=== PATIENT | female | born 1965 | race Caucasian/White ===

== ENCOUNTER → 2024-03-26 | Day surgery (SDC) | payer MEDICAID ==
[~2024-03-26] MED LIST: LIDOCAINE HCL/PF 1% 10 MG/ML 5ML VIAL ONE; SODIUM BICARBONATE 4% 2.4MEQ/5ML VIAL IV ONE
== END | disposition home or self-care (01) ==
LOC: RAD 08:40
PROVIDERS: ATTEND Surgery Surgical Oncology
DX: N64.89 Other specified disorders of breast (principal); R92.8 Other abnormal and inconclusive findings on diagnostic imaging of breast; Z79.899 Other long term (current) drug therapy; Z98.890 Other specified postprocedural states
CPT/HCPCS: 19281; J2003; J3490; A4648

== ENCOUNTER → 2024-03-27 | Day surgery (SDC) | payer MEDICAID, OTHER ==
[~2024-03-27] VITALS: Ht 165.1 cm; Wt 72.6 kg
[~2024-03-27] MED LIST changes: +BUPIVACAINE HCL/PF 0.5% (5MG/ML) 10ML ONE; +CEFAZOLIN SODIUM 1000MG/VIAL ONE; +FENTANYL CITRATE/PF 50MCG/ML 2ML VIAL ONE; +HYDROMORPHONE HCL/PF 1MG/ML INJ IV PRN; +LABETALOL 5MG/ML 4ML INJ IV PRN; +LIDOCAINE HCL/EPINEPHRINE 1%-EPI 1:100,000 20ML VIAL ONE; -LIDOCAINE HCL/PF 1% 10 MG/ML 5ML VIAL ONE; +MIDAZOLAM HCL 2 MG/2 ML VIAL ONE; +ONDANSETRON HCL 4MG/2ML INJ IV PRN; +ONDANSETRON HCL 4MG/2ML INJ ONE; +PROPOFOL 200MG/20ML VIAL IV ONE; -SODIUM BICARBONATE 4% 2.4MEQ/5ML VIAL IV ONE
[2024-03-27] MEDS: LACTATED RINGERS 1,000 ML IV SCH (09:08)
== END | disposition home or self-care (01) ==
LOC: OR 08:05
PROVIDERS: ATTEND Surgery Surgical Oncology
DX: N64.89 Other specified disorders of breast (principal); N64.4 Mastodynia; N60.42 Mammary duct ectasia of left breast; R92.8 Other abnormal and inconclusive findings on diagnostic imaging of breast; I10 Essential (primary) hypertension; Z98.51 Tubal ligation status; Z79.899 Other long term (current) drug therapy; Z98.890 Other specified postprocedural states
CPT/HCPCS: 19125; 88309; 88307; 76098; J3010; J0665; J0690; J2004; J2250; J2405; J2704; A4663